=== PATIENT | female | born 1975 | race Caucasian/White ===

== ENCOUNTER 2016-11-15 09:32 | Emergency (ER) | payer OTHER | END 2016-11-15 10:33 | disposition home or self-care (01) | LOC: ED 09:32 | DX: H10.9 Unspecified conjunctivitis (principal); B34.9 Viral infection, unspecified; K13.79 Other lesions of oral mucosa; K58.9 Irritable bowel syndrome, unspecified; F17.210 Nicotine dependence, cigarettes, uncomplicated; Z79.899 Other long term (current) drug therapy; Z88.5 Allergy status to narcotic agent; Z88.0 Allergy status to penicillin ==